=== PATIENT | female | born 1970 | race Two or more races ===

== ENCOUNTER 2019-06-13 08:56 | Emergency (ER) | payer SELFPAY ==
[~2019-06-13] VITALS: Ht 139.7 cm; Wt 29.5 kg
[2019-06-13] MEDS ORDERED: KETOROLAC TROMETH 60MG/2ML VIAL IM ONE (11:00)
[2019-06-13] MEDS ORDERED: METHOCARBAMOL 500 MG TAB PO ONE (11:00)
[2019-06-13 11:13] VITALS: BP 109/53
== END 2019-06-13 11:25 | disposition home or self-care (01) ==
LOC: ER 09:03
DX: M25.511 Pain in right shoulder (principal); M54.2 Cervicalgia; R51 Headache
CPT/HCPCS: 96372; 99283; J1885